=== PATIENT | female | born 1975 | race Caucasian/White ===

== ENCOUNTER 2016-11-13 11:22 | Inpatient (IN) | payer MEDICAID ==
[~2016-11-13] VITALS: Ht 162.6 cm; Wt 98.5 kg
[~2016-11-13 11:22] MED LIST: IBUP-40 PO
[2016-11-13] MEDS ORDERED: ONDANSETRON 4 MG INJ IV STA (12:53)
[2016-11-13] MEDS ORDERED: ACETAMINOPHEN 500 MG TAB PO STA (12:53)
[2016-11-13] MEDS ORDERED: KETOROLAC 30 MG INJ IV STA (12:53)
--- NOTE | 2016-11-13 12:53 | ERD ---
ER Documentation Chief Complaint Date/Time DATE: 11/13/16 TIME: 12:53 Chief Complaint Head and flank pain with pain with urination x 1 week HPI 41-year-old female presented emergency department for flank pain with dysuria for 1 week. She also added that she has headache for 2 days. Also reports a fever at home but never took her temperature. Stated that she took Tylenol by mouth at around 10 AM. Also added mild hematuria. Denies headache, loss of consciousness, dizziness, blurry vision, changes in vision, photophobia, facial pain, ear pain, throat pain, difficulty swallowing, neck pain, shoulder pain, chest pain, cough, hemoptysis, abdominal pain, loss of appetite, nausea, vomiting, hematochezia, diarrhea, constipation, , the possibility of being , bladder and bowel incontinences, extremity weakness, extremity tenderness, numbness or tingling sensation, difficulty walking, recent travel, recent exposure to illness, recent antibiotic use in the last 3 months, fever, chills. Allergy: Morphine. PMH: Denies. Family medical history: Denies. AO LMP: " of last week." Medications: [id number] Tylenol. Surgery: 2. Cholecystectomy. Hernia. Primary Social History: Not working at this time. Denies smoking, use of alcohol, use of illegal drugs. ROS All systems reviewed and are negative except as per history of present illness. Medications Home Meds Reported Medications Ibuprofen (Advil) 200 Mg Tablet, 400 MG PO Q6 02/23/11 Allergies Allergies: Coded Allergies: morphine (Verified Allergy, Intermediate, HEART PALPITATION, 11/13/16) PMhx/Soc History of Surgery: Yes (GALL BLADDER REMOVAL, 2012) Anesthesia Reaction: No Hx Neurological Disorder: No Hx Respiratory Disorders: No Hx Cardiac Disorders: No Hx Psychiatric Problems: No Hx Miscellaneous Medical Probl: No Hx Alcohol Use: No Hx Substance Use: No Hx Tobacco Use: No Physical Exam Vitals Vital Signs Date Time Temp Pulse Resp B/P Pulse Ox O2 Delivery O2 Flow Rate FiO2 11/13/16 16:08 94 22 136/62 99 Room Air 11/13/16 11:30 102.6 83 18 151/72 98 Physical Exam CONSTITUTIONAL: Well-appearing; well-nourished; in no apparent distress. HEAD: Normocephalic; atraumatic. EYES: Conjunctiva clear, sclera non-icteric, EOM intact. PERRL Ears: Hearing intact. EACs clear, TMs non-bulging, non-inflamed, translucent & mobile, ossicles normal appearance, No obstructions, no erythema, no discharges Nose: No obstructions. No polyps. No external lesions. Mucosa non-inflamed. No external lesions, septum and turbinates normal. No rhinorrhea. No discharges. Frontal sinus is non-tender to palpation. Maxillary sinus is non-tender to palpation. MOUTH: Moist mucous membranes, no lesion, no obstructions, no vesicles, no thrush, patent airway Throat: Uvula in midline. Right tonsil is +1 with no erythema, no exudate. Left tonsil is +1 with no erythema, no exudate. Tolerating secretions well. Good gag reflex. Patent airway. Neck: Supple, without lesions, bruits, or adenopathy. No mass. Thyroid non- enlarged and non-tender to palpation. CHEST: Symmetrical chest. Respirations even and not labored. No retractions noted. CARDIOVASCULAR: Normal S1, S2. RRR. No murmurs, gallops. RESPIRATORY: Normal chest excursion with respiration; breath sounds clear and equal bilaterally; no wheezes, rhonchi, or rales. Breathing even and unlabored. Speaking in clear, full, and complete sentences w/ ease. ABDOMEN: Normal bowel sounds normal. Soft, round, non-distended, non-guarding, no tenderness, no rebound, no organomegaly, no masses, no pulsating abdominal mass. No hernia. There is no right upper/right lower/epigastric/left upper/ left lower abdominal tenderness and light and deep palpation. No peritoneal signs. : Bilateral CVA tenderness. BACK: Symmetrical shoulder. Spine is midline without deformity, tenderness. No evidence of trauma or deformity. PELVIS: Stable pelvis. No evidence of trauma or deformity. MUSCULOSKELETAL: Normal gait and station. No misalignment, asymmetry, crepitation, defects, tenderness, masses, effusions, decreased range of motion, instability, atrophy or abnormal strength or tone in the head, neck, spine, ribs , pelvis or extremities. No calf tenderness. NEUROVASCULAR: Distal pulses are present. Pedal pulse are present, equal, and normal. Capillary refills are < 2 seconds. NEUROLOGIC: Alert and oriented x4. Speaks full and clear sentences. Grossly unremarkable. No neurologic deficits. Romberg test is negative. PSYCHOLOGICAL: The patients mood and manner are appropriate. No hallucinations , delusions. Not SI. Not HI. Has the capacity to decide for self SKIN: Normal for age and ethnicity; warm; dry; good turgor; no apparent lesions or exudates. No rashes, hives, discoloration. Intact. Result Diagram: 11/13/16 1315 11/13/16 1315 Results 24 hrs Laboratory Tests Test 11/13/16 13:15 11/13/16 14:45 White Blood Count 25.310^3/ul Red Blood Count 4.0710^6/ul Hemoglobin 12.3g/dl Hematocrit 36.1% Mean Corpuscular Volume 88.7fl Mean Corpuscular Hemoglobin 30.2pg Mean Corpuscular Hemoglobin Concent 34.1g/dl Red Cell Distribution Width 12.8% Platelet Count 25906^3/UL Mean Platelet Volume 10.7fl Neutrophils % 83.0% Lymphocytes % 7.9% Monocytes % 5.1% Eosinophils % 0.1% Basophils % 0.2% Nucleated Red Blood Cells % 0.0/100WBC Neutrophils # 21.010^3/ul Lymphocytes # 2.010^3/ul Monocytes # 1.310^3/ul Eosinophils # 0.010^3/ul Basophils # 0.110^3/ul Nucleated Red Blood Cells # 0.010^3/ul Prothrombin Time 13.4Sec Prothrombin Time Ratio 1.0 INR International Normalized Ratio 1.02 Activated Partial Thromboplast Time 33.6Sec Urine Color YELLOW Urine Clarity SLIGHTLY CLOUDY Urine pH 7.0 Urine Specific [place] 1.003 Urine Ketones NEGATIVEmg/dL Urine Nitrite NEGATIVEmg/dL Urine Bilirubin NEGATIVEmg/dL Urine Urobilinogen NEGATIVEmg/dL Urine Leukocyte Esterase 3+Eryn/ul Urine Microscopic RBC 2/HPF Urine Microscopic WBC 24/HPF Urine Bacteria MANY/HPF Urine Hemoglobin 2+mg/dL Urine Glucose NEGATIVEmg/dL Urine Total Protein NEGATIVEmg/dl Sodium Level 129mmol/L Potassium Level 3.4mmol/L Chloride Level 99mmol/L Carbon Dioxide Level 25mmol/L Anion Gap 8 Blood Urea Nitrogen 13mg/dl Creatinine 1.02mg/dl Glucose Level 128mg/dl Calcium Level 9.1mg/dl Total Bilirubin 0.5mg/dl Direct Bilirubin 0.00mg/dl Indirect Bilirubin 0.5mg/dl Aspartate Amino Transf (AST/SGOT) 25IU/L Alanine Aminotransferase (ALT/SGPT) 65IU/L Alkaline Phosphatase 96IU/L Total Protein 6.7g/dl Albumin 3.7g/dl Globulin 3.00g/dl Albumin/Globulin Ratio 1.23 Amylase Level 49U/L Lipase 132U/L Serum HCG, Qualitative NEGATIVE Lactic Acid Level 1.6mmol/L Current Medications Medications (Trade) Dose Ordered Sig/Bernabe Route PRN Reason Start Time Stop Time Status Last Admin Dose Admin Ketorolac Tromethamine (Toradol) 30 mg ONCE STAT IV 11/13/16 12:53 11/13/16 12:57 DC 11/13/16 13:18 Ondansetron HCl (Zofran Inj) 4 mg ONCE STAT IV 11/13/16 12:53 11/13/16 12:57 DC 11/13/16 13:18 Acetaminophen 1000 mg 1,000 mg ONCE STAT PO 11/13/16 12:53 11/13/16 12:57 DC 11/13/16 13:18 Ceftriaxone Sodium 50 ml @ 100 mls/hr ONCE ONCE IVPB 11/13/16 13:00 11/13/16 13:29 DC 11/13/16 13:18 Sodium Chloride 500 ml @ 500 mls/hr Q1H ONCE IV 11/13/16 13:00 11/13/16 13:59 DC 11/13/16 13:18 Sodium Chloride (NS) 2,960 ml @ 2,960 mls/hr BOLUS X1 ONCE IV 11/13/16 14:30 11/13/16 15:29 DC 11/13/16 14:45 Hydromorphone HCl (Dilaudid) 1 mg ONCE STAT IV 11/13/16 16:05 11/13/16 16:06 DC 11/13/16 16:14 Procedures/MDM Examination: Please see physical examination. Disease process, medical treatment was explained to the patient and family member. They verbalized understanding and agreed with the diagnostic tests, medical treatment, and follow-up care. Radiology: CT of the abdomen and pelvis without IV contrast Impression: Perinephric stranding about both kidneys with medullary nephrocalcinosis with a mildly prominent appearance to the collecting system on the right without evidence of ureteral lithiasis. He recently passed calculus could have this appearance. Hepatosplenomegaly with a diffuse decrease in hepatic attenuation suggesting steatosis. Previous cholecystectomy with mild dilation of the common bile duct of uncertain significance. Normal-appearing appendix is visualized. Blood work: Elevated white count at 25.3; hyponatremia at 129 mmol/L; potassium of 3.4 mmol/L Lactic acid of 1.6 mmol/L POC urine : Negative. Urinalysis: Reviewed. Treatment: IV insertion. Normal saline at 31 cc/kg IV. Ceftriaxone 1 g IV. Re-evaluation: Denies headache, dizziness, blurry vision, neck pain, shoulder pain, chest pain, back pain, abdominal pain, nausea, vomiting. No episode of emesis in the emergency department. Alert and oriented 4. Speaks full and clear sentences. Respirations even and unlabored. Lung sounds clear to auscultation. Active bowel sounds. There is no right upper/right lower/ epigastric/left upper/left lower abdominal tenderness and light and deep palpation. Negative on Rovsings sign. Negative Trupti sign. Has left-sided CVA tenderness on palpation. Ambulatory with steady gait. No neurovascular deficits. No neurological deficits. Consultation: None. Differential diagnosis: Abdominal aortic aneurysm versus nephrolithiasis versus pancreatitis versus pyelonephritis versus urinary tract infection Medical decision makin-year-old female presented emergency department for flank pain with dysuria for 1 week. She also added that she has headache for 2 days. Also reports a fever at home but never took her temperature. Stated that she took Tylenol by mouth at around 10 AM. Patient's complaint, patient's history about her complaint, my physical findings, diagnostic test results, my reevaluation are consistent with my final diagnosis of pyelonephritis, leukocytosis, hyponatremia. Case was discussed with supervising emergency room physician, Dr. Kim Castellanos who agreed with my medical decision making. She also agreed to continue the care and process the admission. Departure Diagnosis: Primary Impression: Pyelonephritis Additional Impressions: Fever Leukocytosis Hyponatremia NICCI LUQUE Nov 13, 2016 12:53 deficits, difficulty of breathing. Breathing even and unlabored. Lung sounds are clear to auscultation. Not in distress. Appears comfortable. Ambulatory with steady gait. Appears satisfied with care provided here in ED. NICCI LUQUE Nov 13, 2016 12:53
[2016-11-13] MEDS ORDERED: SOD CHLORIDE 0.9% 500 ML IV ONE (13:00)
[2016-11-13] MEDS ORDERED: CEFTRIAXONE 1 GM/50 ML (PMX) 50 ML IVPB ONE (13:00)
[2016-11-13 13:40] LABS: ADD SCAN DIFF NO
[2016-11-13 13:44] LABS: ABNORMAL IP MESSAGE 1; BASOPHIL # 0.1 10^3/ul (0.0-0.1); BASOPHILS % 0.2 % (0.0-2.0); EOSINOPHILS % 0.1 % (0.0-7.0); HEMATOCRIT 36.1 % (37.0-47.0); HEMOGLOBIN 12.3 g/dl (12.0-16.0); LYMPHOCYTES % 7.9 % (15.0-51.0); MEAN CORPUSCULAR HEMOGLOBIN 30.2 pg (29.0-33.0); MEAN CORPUSCULAR HGB CONC 34.1 g/dl (32.0-37.0); MEAN CORPUSCULAR VOLUME 88.7 fl (82.0-101.0); MEAN PLATELET VOLUME 10.7 fl (7.4-10.4); MONOCYTE # 1.3 10^3/ul (0.3-0.9); MONOCYTES % 5.1 % (0.0-11.0); PLATELET COUNT 423 10^3/UL (140-415); RED BLOOD COUNT 4.07 10^6/ul (4.20-5.40); RED CELL DISTRIBUTION WIDTH 12.8 % (11.5-14.5); WHITE BLOOD COUNT 25.3 10^3/ul (4.8-10.8)
[2016-11-13 13:52] LABS: ADD UMIC YES; UR ASCORBIC ACID NEGATIVE (NEGATIVE); UR BACTERIA MANY /HPF (NONE SEEN); UR BILIRUBIN (Dip) NEGATIVE (NEGATIVE); UR BLOOD (Dip) 2+ mg/dL (NEGATIVE); UR CLARITY SLIGHTLY CLOUDY (CLEAR); UR COLOR YELLOW (YELLOW); UR GLUCOSE (Dip) NEGATIVE (NEGATIVE); UR KETONES (Dip) NEGATIVE (NEGATIVE); UR LEUKOCYTE ESTERASE (Dip) 3+ Leu/ul (NEGATIVE); UR NITRITE (Dip) NEGATIVE (NEGATIVE); UR RBC 2 /HPF (0-5); UR SPECIFIC GRAVITY (Dip) 1.003 (1.003-1.030); UR TOTAL PROTEIN (Dip) NEGATIVE (NEGATIVE); UR UROBILINOGEN (Dip) NEGATIVE (NEGATIVE)
[2016-11-13 13:57] LABS: INR 1.02; PROTIME 13.4 Sec (12.2-14.2)
[2016-11-13 13:58] LABS: PARTIAL THROMBOPLASTIN TIME 33.6 Sec (25.0-35.0)
[2016-11-13 14:14] LABS: ALBUMIN 3.7 g/dl (3.3-4.9); ALBUMIN/GLOBULIN RATIO 1.23; BILIRUBIN,INDIRECT 0.5 mg/dl (0-1.1); BILIRUBIN,TOTAL 0.5 mg/dl (0.2-1.3); CREATININE 1.02 mg/dl (0.44-1.00); POTASSIUM 3.4 mmol/L (3.5-5.1); TOTAL PROTEIN 6.7 g/dl (6.1-8.1)
[2016-11-13] MEDS ORDERED: SOD CHLORIDE 0.9% IV ONE (14:30)
[2016-11-13 14:31] LABS: CALCIUM 9.1 mg/dl (8.4-10.2)
--- NOTE | 2016-11-13 15:01 | RADRPT ---
PROCEDURE: CT Abdomen and Pelvis without contrast. CLINICAL INDICATION: Flank pain, dysuria, hematuria. TECHNIQUE: CT scan of the abdomen and pelvis without contrast was performed on a multidetector hig h-resolution CT scanner. The patient was scanned without intravenous contrast. Coronal and sagittal reformatted images were obtained from the axial source images. Images were reviewed on a high-resol [employer] PACS workstation. The total exam CTDI equals 19.11 mGy and the total exam DLP equals 1052.1 mG y-cm. One or the following dose reduction techniques were used: -Automated exposure control. -Adjustment of the mA and/or KV according to patient's size. -Use of iterative reconstruction technique. COMPARISON: CT abdomen pelvis from 03/05/2015. FINDINGS: Lung Bases: Unremarkable. GI:. Unremarkable. Liver: There is hepatomegaly 23.5 cm in length. The overall densities decrease consistent with diffu se steatosis. Gallbladder: Gallbladder is surgically absent. The common bile duct measures 11 mm. Pancreas: Unremarkable. Spleen: There is splenomegaly at 14 cm in length. Adrenals: Unremarkable. Kidneys: There is bilateral perinephric stranding. There are calcifications in the renal pyramids b ilaterally consistent with medullary nephrocalcinosis. There is a mildly prominent appearance to th e right ureter. However, no ureteral lithiasis is seend. Bladder: The bladder is decompressed and therefore not well evaluated. Pelvic Organs: Unremarkable. Skeleton: Normal for age. Other: There is postoperative change in the region of the umbilicus. IMPRESSION: 1. Perinephric stranding about both kidneys with medullary nephrocalcinosis with a mildly prominent appearance to the collecting system on the right without evidence of ureteral lithiasis. A recently passed calculus could have this appearance. 2. Hepatosplenomegaly with a diffuse decrease in hepatic attenuation suggesting steatosis. 3. Previous cholecystectomy with mild dilation of the common bile duct of uncertain significance. 4. Normal appearing appendix visualized. RPTAT: [facility] Physician Aundrea Date Time Electronically viewed and signed by Physician Aundrea on 11/13/2016 15:00 TRACE/
[2016-11-13] MEDS ORDERED: HYDROmorphONE 1 MG/ML SYG IV STA (16:05)
[2016-11-13] MEDS ORDERED: ACETAMINOPHEN 325 MG TAB PO PRN (18:00)
[2016-11-13] MEDS ORDERED: ONDANSETRON 4 MG INJ IV PRN ×2 (18:00→18:30)
--- NOTE | 2016-11-13 18:14 | HP ---
Date/Time of Note Date/Time of Note DATE: 11/13/16 TIME: 18:09 Assessment/Plan VTE Prophylaxis VTE Prophylaxis Intervention: SCD's Assessment/Plan Assessment/Plan 41 yo F here with sepsis (fever +leukocytosis) suspect 2/2 pyelo given UA findings of pyruria and bactiuria PLAN empiric ceftriaxone pending further culture data pain management regular diet DVT prophx HPI/ROS Admit Date/Time Admit Date/Time Hx of Present Illness 41 yo F presents with 1 day of feeling unwell-->nausea, chills. No fever. No vomiting. +malaise. No back pain PMH/Family/Social Past Medical History no chronic medical conditions, no home meds Social History Smoking Status: Never smoker Exam/Review of Systems Vital Signs Vitals Vital Signs Date Time Temp Pulse Resp B/P Pulse Ox O2 Delivery O2 Flow Rate FiO2 11/13/16 16:08 94 22 136/62 99 Room Air 11/13/16 11:30 102.6 Exam Exam nad EOMI MMM rrr no mrg lungs clear abd soft no CVA tenderness no rashes no edema WBCs noted Cr ok Na mildly low Labs Result Diagram: 11/13/16 1315 11/13/16 1315 ANGELO KELLOGG MD Nov 13, 2016 18:14
[2016-11-13] MEDS ORDERED: POTASSIUM CHLORIDE (SR) 20 MEQ TAB PO STA (18:16)
[2016-11-13] MEDS ORDERED: HYDROCODONE/APAP (5/325) TAB PO PRN (18:30)
[2016-11-13] MEDS ORDERED: MAGNESIUM HYDROXIDE 30ML CUP PO PRN (18:30)
[2016-11-13] MEDS ORDERED: BISACODYL (EC) 5 MG TAB PO PRN (18:30)
[2016-11-13] MEDS ORDERED: ONDANSETRON 4 MG TAB PO PRN (18:30)
[2016-11-13] MEDS ORDERED: NACL 0.9% 3 ML SYG IV SCH (18:30)
[2016-11-13] MEDS ORDERED: morphine 2 MG INJ IV PRN (18:30)
[2016-11-13] MEDS ORDERED: DOCUSATE SODIUM 100 MG CAP PO PRN (18:30)
[2016-11-13] MEDS ORDERED: METOCLOPRAMIDE 10 MG INJ IV PRN (18:30)
[2016-11-13] MEDS: SOD CHLORIDE 0.9% 1,000 ML IV SCH ×2 (18:59→20:00)
[2016-11-13] MEDS: ACETAMINOPHEN 325 MG TAB PO PRN (19:27)
[2016-11-13 20:12] VITALS: BP 110/61; RESP 17
[2016-11-14] MEDS: ACETAMINOPHEN 325 MG TAB PO PRN ×3 (01:07→18:30)
[2016-11-14] MEDS: SOD CHLORIDE 0.9% 1,000 ML IV SCH ×3 (02:09→18:31)
[2016-11-14 05:50] LABS: ADD SCAN DIFF NO
[2016-11-14 05:56] LABS: ABNORMAL IP MESSAGE 1; BASOPHILS % 0.2 % (0.0-2.0); EOSINOPHILS # 0.1 10^3/ul (0.0-0.5); EOSINOPHILS % 0.2 % (0.0-7.0); HEMATOCRIT 29.3 % (37.0-47.0); HEMOGLOBIN 9.9 g/dl (12.0-16.0); LYMPHOCYTES # 1.5 10^3/ul (0.8-2.9); LYMPHOCYTES % 5.6 % (15.0-51.0); MEAN CORPUSCULAR HEMOGLOBIN 30.4 pg (29.0-33.0); MEAN CORPUSCULAR HGB CONC 33.8 g/dl (32.0-37.0); MEAN CORPUSCULAR VOLUME 89.9 fl (82.0-101.0); MEAN PLATELET VOLUME 10.5 fl (7.4-10.4); MONOCYTES % 3.8 % (0.0-11.0); NEUTROPHIL # 22.9 10^3/ul (1.6-7.5); NEUTROPHILS % 87.9 % (39.0-77.0); PLATELET COUNT 376 10^3/UL (140-415); RED BLOOD COUNT 3.26 10^6/ul (4.20-5.40); RED CELL DISTRIBUTION WIDTH 13.2 % (11.5-14.5)
[2016-11-14 06:17] VITALS: Ht 162.6 cm; Wt 98.5 kg
[2016-11-14 06:56] LABS: CALCIUM 7.9 mg/dl (8.4-10.2); POTASSIUM 3.4 mmol/L (3.5-5.1)
[2016-11-14 07:00] VITALS: BP 109/54; RESP 18
[2016-11-14] MEDS ORDERED: POTASSIUM CHLORIDE (SR) 20 MEQ TAB PO STA (08:18)
[2016-11-14] MEDS: ENOXAPARIN 40 MG/0.4 ML SYG SC SCH (09:25)
[2016-11-14] MEDS ORDERED: HYDROmorphONE 1 MG/ML SYG IV PRN (09:30)
[2016-11-14] MEDS ORDERED: CEFTRIAXONE 1 GM/50 ML (PMX) 50 ML IVPB SCH (12:40)
--- NOTE | 2016-11-14 12:40 | PN ---
Date/Time of Note Date/Time of Note DATE: 11/14/16 TIME: 12:39 Assessment/Plan VTE Prophylaxis VTE Prophylaxis Intervention: SCD's Lines/Catheters IV Catheter Type (from Nrsg): Peripheral IV Urinary Cath still in place: No Assessment/Plan Assessment/Plan 41 yo F here with sepsis (fever +leukocytosis) suspect 2/2 pyelo given UA findings of pyruria and bactiuria PLAN empiric ceftriaxone pending further culture data-->dw pt pain management regular diet DVT prophx Subjective 24 Hr Interval Summary Free Text/Dictation Feeling much better. Family member served as town clerk Exam/Review of Systems Vital Signs Vitals Vital Signs Date Time Temp Pulse Resp B/P Pulse Ox O2 Delivery O2 Flow Rate FiO2 11/14/16 07:00 100.0 100 18 109/54 98 11/13/16 16:08 Room Air Intake and Output 11/13/16 11/13/16 11/14/16 15:00 23:00 07:00 Intake Total 2320 ml Output Total 1600 ml Balance 720 ml Exam nad no mrg lungs clear abd soft no CVA tenderness nl no rashes Results Result Diagram: 11/14/16 0500 11/14/16 0500 Results 24 hrs Laboratory Tests Test 11/13/16 13:15 11/13/16 14:45 11/14/16 05:00 White Blood Count 25.3 #H 26.0 H Red Blood Count 4.07 L 3.26 L Hemoglobin 12.3 9.9 L Hematocrit 36.1 L 29.3 L Mean Corpuscular Volume 88.7 89.9 Mean Corpuscular Hemoglobin 30.2 30.4 Mean Corpuscular Hemoglobin Concent 34.1 33.8 Red Cell Distribution Width 12.8 13.2 Platelet Count 423 H 376 Mean Platelet Volume 10.7 #H 10.5 H Neutrophils % 83.0 H 87.9 H Lymphocytes % 7.9 L 5.6 L Monocytes % 5.1 3.8 Eosinophils % 0.1 0.2 Basophils % 0.2 0.2 Nucleated Red Blood Cells % 0.0 0.0 Neutrophils # 21.0 H 22.9 H Lymphocytes # 2.0 1.5 Monocytes # 1.3 H 1.0 H Eosinophils # 0.0 0.1 Basophils # 0.1 0.0 Nucleated Red Blood Cells # 0.0 0.0 Prothrombin Time 13.4 Prothrombin Time Ratio 1.0 INR International Normalized Ratio 1.02 Activated Partial Thromboplast Time 33.6 Urine Color YELLOW Urine Clarity SLIGHTLY CLOUDY A Urine pH 7.0 Urine Specific [place] 1.003 Urine Ketones NEGATIVE Urine Nitrite NEGATIVE Urine Bilirubin NEGATIVE Urine Urobilinogen NEGATIVE Urine Leukocyte Esterase 3+ H Urine Microscopic RBC 2 Urine Microscopic WBC 24 H Urine Bacteria MANY A Urine Hemoglobin 2+ H Urine Glucose NEGATIVE Urine Total Protein NEGATIVE Sodium Level 129 L 141 Potassium Level 3.4 L 3.4 L Chloride Level 99 108 Carbon Dioxide Level 25 22 Anion Gap 8 14 Blood Urea Nitrogen 13 9 Creatinine 1.02 H 1.00 Glucose Level 128 169 Calcium Level 9.1 7.9 L Total Bilirubin 0.5 Direct Bilirubin 0.00 Indirect Bilirubin 0.5 Aspartate Amino Transf (AST/SGOT) 25 Alanine Aminotransferase (ALT/SGPT) 65 Alkaline Phosphatase 96 Total Protein 6.7 Albumin 3.7 Globulin 3.00 Albumin/Globulin Ratio 1.23 Amylase Level 49 Lipase 132 Serum HCG, Qualitative NEGATIVE Lactic Acid Level 1.6 Medications Medications Current Medications Sodium Chloride (NS) 1,000 ml @ 125 mls/hr Q8H IV Last administered on 06:11; Admin Dose 125 MLS/HR; Start 11/13/16 at 18:09 Ondansetron HCl (Zofran Tab) 4 mg Q6H PRN PO NAUSEA AND/OR VOMITING; Start at 18:30 Ondansetron HCl (Zofran Inj) 4 mg Q6H PRN IV NAUSEA AND/OR VOMITING; Start at 18:30 Metoclopramide HCl (Reglan) 10 mg Q6H PRN IV NAUSEA AND/OR VOMITING; Start at 18:30 Acetaminophen (Tylenol Tab) 650 mg Q6H PRN PO PAIN LEVEL 1-3 OR FEVER Last administered on 11/14/16 10:24; Admin Dose 650 MG; Start 11/13/16 at 18:30 Acetaminophen/ Hydrocodone Bitart ([place] (5/325)) 1 tab Q6H PRN PO MODERATE PAIN LEVEL 4-6; Start 11/13/16 at 18:30 Docusate Sodium (Colace) 100 mg Q12H PRN PO CONSTIPATION; Start 11/13/16 at 18: 30 Magnesium Hydroxide (Milk Of Mag) 30 ml DAILY PRN PO CONSTIPATION; Start at 18:30 Bisacodyl (Dulcolax) 5 mg DAILY PRN PO CONSTIPATION; Start 11/13/16 at 18:30 Enoxaparin Sodium (Lovenox) 40 mg DAILY SC Last administered on 11/14/16t 09:25 ; Admin Dose 40 MG; Start 11/14/16 at 09:00 Hydromorphone HCl (Dilaudid) 0.5 mg Q3H PRN IV PAIN; Start 11/14/16 at 09:30 ANGELO KELLOGG MD Nov 14, 2016 12:40
[2016-11-14 17:00] VITALS: BP 111/59
[2016-11-14] MEDS: LEVOFLOXACIN 750 MG TABLET PO SCH (18:30)
[2016-11-14 21:38] VITALS: BP 114/66; RESP 20
[2016-11-15 00:03] VITALS: BP 115/61; PULSE 64; RESP 18
[2016-11-15] MEDS: SOD CHLORIDE 0.9% 1,000 ML IV SCH ×3 (02:10→18:41)
[2016-11-15] MEDS: LEVOFLOXACIN 750 MG TABLET PO SCH (05:48)
[2016-11-15] MEDS: ENOXAPARIN 40 MG/0.4 ML SYG SC SCH (07:58)
[2016-11-15 08:15] VITALS: BP 112/60; RESP 18
--- NOTE | 2016-11-15 10:28 | PN ---
Date/Time of Note Date/Time of Note DATE: 11/15/16 TIME: 10:27 Assessment/Plan VTE Prophylaxis VTE Prophylaxis Intervention: SCD's Lines/Catheters IV Catheter Type (from Nrsg): Peripheral IV Urinary Cath still in place: No Assessment/Plan Assessment/Plan 41 yo F here with sepsis (fever +leukocytosis) suspect 2/2 pyelo given UA findings of pyruria and bactiuria with resultant bacteremia 2/2 ESBL EColi PLAN given ESBL microbe with no readily apparent PO options, ID consult for abx assistance/possible HH IVs pain management regular diet DVT prophx Subjective 24 Hr Interval Summary Free Text/Dictation Urine culture results reviewed. Unfortunately ESBL R to quinolones Pt states she is feeling better Exam/Review of Systems Vital Signs Vitals Vital Signs Date Time Temp Pulse Resp B/P Pulse Ox O2 Delivery O2 Flow Rate FiO2 11/15/16 08:15 98.9 91 18 112/60 97 11/15/16 00:03 Room Air Intake and Output 11/14/16 11/14/16 11/15/16 15:00 23:00 07:00 Intake Total 900 ml 1855 ml Output Total 1100 ml 1800 ml Balance -200 ml 55 ml Exam seen walking in hallway nad lungs clear abd soft no rashes micro results reviewed Results Result Diagram: 11/14/16 0500 11/14/16 0500 Medications Medications Current Medications Sodium Chloride (NS) 1,000 ml @ 125 mls/hr Q8H IV Last administered on 02:10; Admin Dose 125 MLS/HR; Start 11/13/16 at 18:09 Ondansetron HCl (Zofran Tab) 4 mg Q6H PRN PO NAUSEA AND/OR VOMITING; Start at 18:30 Ondansetron HCl (Zofran Inj) 4 mg Q6H PRN IV NAUSEA AND/OR VOMITING; Start at 18:30 Metoclopramide HCl (Reglan) 10 mg Q6H PRN IV NAUSEA AND/OR VOMITING; Start at 18:30 Acetaminophen (Tylenol Tab) 650 mg Q6H PRN PO PAIN LEVEL 1-3 OR FEVER Last administered on 11/14/16 18:30; Admin Dose 650 MG; Start 11/13/16 at 18:30 Acetaminophen/ Hydrocodone Bitart ([place] (5/325)) 1 tab Q6H PRN PO MODERATE PAIN LEVEL 4-6; Start 11/13/16 at 18:30 Docusate Sodium (Colace) 100 mg Q12H PRN PO CONSTIPATION; Start 11/13/16 at 18: 30 Magnesium Hydroxide (Milk Of Mag) 30 ml DAILY PRN PO CONSTIPATION; Start at 18:30 Bisacodyl (Dulcolax) 5 mg DAILY PRN PO CONSTIPATION; Start 11/13/16 at 18:30 Enoxaparin Sodium (Lovenox) 40 mg DAILY SC Last administered on 11/15/16t 07:58 ; Admin Dose 40 MG; Start 11/14/16 at 09:00 Hydromorphone HCl (Dilaudid) 0.5 mg Q3H PRN IV PAIN; Start 11/14/16 at 09:30 ANGELO KELLOGG MD Nov 15, 2016 10:28
[2016-11-15] MEDS ORDERED: MEROPENEM 2 GM in SOD CHLORIDE 0.9% 100 ML IVPB SCH (14:00)
[2016-11-15] MEDS ORDERED: MEROPENEM 1 GM/50ML(PMX) 50 ML IVPB SCH (14:00)
--- NOTE | 2016-11-15 17:01 | CONS ---
Date/Time of Note Date/Time of Note DATE: 11/15/16 TIME: 17:00 Consultation Date/Type/Reason Admit Date/Time Type of Consultation: ID Social History Smoking Status: Never smoker Exam/Review of Systems Vital Signs Vitals Vital Signs Date Time Temp Pulse Resp B/P Pulse Ox O2 Delivery O2 Flow Rate FiO2 11/15/16 08:15 98.9 91 18 112/60 97 11/15/16 00:03 Room Air Intake and Output 11/14/16 11/14/16 11/15/16 15:00 23:00 07:00 Intake Total 900 ml 1855 ml Output Total 1100 ml 1800 ml Balance -200 ml 55 ml Results Result Diagram: 11/14/16 0500 11/14/16 0500 Medications Medications Current Medications Sodium Chloride (NS) 1,000 ml @ 125 mls/hr Q8H IV Last administered on 12:59; Admin Dose 125 MLS/HR; Start 11/13/16 at 18:09 Ondansetron HCl (Zofran Tab) 4 mg Q6H PRN PO NAUSEA AND/OR VOMITING; Start at 18:30 Ondansetron HCl (Zofran Inj) 4 mg Q6H PRN IV NAUSEA AND/OR VOMITING; Start at 18:30 Metoclopramide HCl (Reglan) 10 mg Q6H PRN IV NAUSEA AND/OR VOMITING; Start at 18:30 Acetaminophen (Tylenol Tab) 650 mg Q6H PRN PO PAIN LEVEL 1-3 OR FEVER Last administered on 11/14/16 18:30; Admin Dose 650 MG; Start 11/13/16 at 18:30 Acetaminophen/ Hydrocodone Bitart ([place] (5/325)) 1 tab Q6H PRN PO MODERATE PAIN LEVEL 4-6; Start 11/13/16 at 18:30 Docusate Sodium (Colace) 100 mg Q12H PRN PO CONSTIPATION; Start 11/13/16 at 18: 30 Magnesium Hydroxide (Milk Of Mag) 30 ml DAILY PRN PO CONSTIPATION; Start at 18:30 Bisacodyl (Dulcolax) 5 mg DAILY PRN PO CONSTIPATION; Start 11/13/16 at 18:30 Enoxaparin Sodium (Lovenox) 40 mg DAILY SC Last administered on 11/15/16 07:58 ; Admin Dose 40 MG; Start 11/14/16 at 09:00 Hydromorphone HCl 0.5 mg 0.5 mg Q3H PRN IV PAIN; Start 11/14/16 at 09:30 Meropenem/Sodium Chloride ([place] 1 Gm/50 ml (Pmx)) 50 ml @ 100 mls/hr Q8 IVPB Last administered on 11/15/16 13:04; Admin Dose 100 MLS/HR; Start 11/15/16 at 14:00 JUDY JOYNER MD Nov 15, 2016 17:01
[2016-11-15] MEDS ORDERED: LIDOCAINE 1% (MPF) 5 ML VIAL SC ONE (17:30)
[2016-11-15] MEDS: ERTAPENEM SODIUM 1 GM in SOD CHLORIDE 0.9% 100 ML IVPB SCH (18:43)
[2016-11-15 19:29] VITALS: BP 118/69; RESP 16
[2016-11-15 19:41] VITALS: BP 150/70; RESP 16
[2016-11-16] MEDS: ACETAMINOPHEN 325 MG TAB PO PRN (01:02)
[2016-11-16 08:04] VITALS: BP 117/70; RESP 18
[2016-11-16] MEDS: ENOXAPARIN 40 MG/0.4 ML SYG SC SCH (08:46)
--- NOTE | 2016-11-16 14:06 | PN ---
Date/Time of Note Date/Time of Note DATE: 11/16/16 TIME: 13:59 Assessment/Plan VTE Prophylaxis VTE Prophylaxis Intervention: LMWH Lines/Catheters IV Catheter Type (from Nrs): Saline Lock Urinary Cath still in place: No Assessment/Plan Chief Complaint/Hosp Course Assessment/Plan: 41 yo F here with sepsis (fever +leukocytosis) suspect 2/2 pyelo given UA findings of pyruria and bactiuria with resultant bacteremia 2/2 ESBL EColi #1. Pyelonephritis - given ESBL microbe with no readily apparent PO options, follow-up infectious disease recommendations. Per discussion with them will repeat blood cultures as well today, then depending on the results may or may not order for PICC line placement -Continue current IV antibiotics 2. pain management-stable, continue current meds 3. GI - regular diet 4. ppx- DVT-low molecular weight heparin Problems: Subjective 24 Hr Interval Summary Free Text/Dictation Patient had no acute events overnight. Awaiting possible PICC line placement Exam/Review of Systems Vital Signs Vitals Vital Signs Date Time Temp Pulse Resp B/P Pulse Ox O2 Delivery O2 Flow Rate FiO2 11/16/16 08:04 98.1 83 18 117/70 98 11/15/16 00:03 Room Air Intake and Output 11/15/16 11/15/16 11/16/16 15:00 23:00 07:00 Intake Total 50 ml 2275 ml 1700 ml Output Total 1500 ml 1100 ml Balance 50 ml 775 ml 600 ml Exam Lying in bed, no acute distress Pupils equal round reactive to light extraocular muscles are intact lungs clear abd soft no rashes Results Result Diagram: 11/14/16 0500 11/14/16 0500 Medications Medications Current Medications Ondansetron HCl (Zofran Tab) 4 mg Q6H PRN PO NAUSEA AND/OR VOMITING; Start at 18:30 Ondansetron HCl (Zofran Inj) 4 mg Q6H PRN IV NAUSEA AND/OR VOMITING; Start at 18:30 Metoclopramide HCl (Reglan) 10 mg Q6H PRN IV NAUSEA AND/OR VOMITING; Start at 18:30 Acetaminophen (Tylenol Tab) 650 mg Q6H PRN PO PAIN LEVEL 1-3 OR FEVER Last administered on 11/16/16t 01:02; Admin Dose 650 MG; Start 11/13/16 at 18:30 Acetaminophen/ Hydrocodone Bitart ([place] (5/325)) 1 tab Q6H PRN PO MODERATE PAIN LEVEL 4-6; Start 11/13/16 at 18:30 Docusate Sodium (Colace) 100 mg Q12H PRN PO CONSTIPATION; Start 11/13/16 at 18: 30 Magnesium Hydroxide (Milk Of Mag) 30 ml DAILY PRN PO CONSTIPATION; Start at 18:30 Bisacodyl (Dulcolax) 5 mg DAILY PRN PO CONSTIPATION; Start 11/13/16 at 18:30 Enoxaparin Sodium (Lovenox) 40 mg DAILY SC Last administered on 11/15/16t 07:58 ; Admin Dose 40 MG; Start 11/14/16 at 09:00 Hydromorphone HCl 0.5 mg 0.5 mg Q3H PRN IV PAIN; Start 11/14/16 at 09:30 Ertapenem 1 gm/ Sodium Chloride 100 ml @ 200 mls/hr Q24H IVPB Last administered on 11/15/16t 18:43; Admin Dose 200 MLS/HR; Start 11/15/16 at 18:30 Potassium Chloride (KCl 40 MEQ/250 ML NS) 250 ml @ 62.5 mls/hr ONCE ONCE IVPB ; Start 11/16/16 at 14:00; Stop 11/16/16 at 17:59; Status TAYO ALARCON Nov 16, 2016 14:06
--- NOTE | 2016-11-16 15:57 | CONS ---
Date/Time of Note Date/Time of Note DATE: 11/16/16 TIME: 15:57 Assessment/Plan Assessment/Plan Chief Complaint/Hosp Course Alert, feels better, denies dysuria, no nausea vomiting no diarrhea, less lower back pain Temperature 98.1 pulse 83 respirations 18 blood pressure 117/70 saturation 98 room air Antimicrobials: Invanz Microbiology: Blood and urine culture growing E. coli ESBL Physical examination: Obese well-developed middle-aged woman who is alert in no distress. Head atraumatic normocephalic, sclera nonicteric vehicle mucosa pink. Neck is supple. Chest rise symmetrical, breath sounds clear. Abdomen soft, no pain on palpation bowel tones present extremities no cyanosis Assessment: 1. Sepsis with E. coli ESBL bacteremia secondary to #2 2. E. coli ESBL pyelonephritis Plan: We are going to repeat blood cultures and labs in a.m., anticipate discharge on IV Invanz for 2 weeks once medically cleared Problems: Consultation Date/Type/Reason Admit Date/Time Nov 13, 2016 at 17:41 Initial Consult Date Type of Consultation: ID Exam/Review of Systems Vital Signs Vitals Vital Signs Date Time Temp Pulse Resp B/P Pulse Ox O2 Delivery O2 Flow Rate FiO2 11/16/16 08:04 98.1 83 18 117/70 98 11/15/16 00:03 Room Air Intake and Output 11/15/16 11/15/16 11/16/16 15:00 23:00 07:00 Intake Total 50 ml 2275 ml 1700 ml Output Total 1500 ml 1100 ml Balance 50 ml 775 ml 600 ml Results Result Diagram: 11/14/16 0500 11/14/16 0500 Medications Medications Current Medications Ondansetron HCl (Zofran Tab) 4 mg Q6H PRN PO NAUSEA AND/OR VOMITING; Start at 18:30 Ondansetron HCl (Zofran Inj) 4 mg Q6H PRN IV NAUSEA AND/OR VOMITING; Start at 18:30 Metoclopramide HCl (Reglan) 10 mg Q6H PRN IV NAUSEA AND/OR VOMITING; Start at 18:30 Acetaminophen (Tylenol Tab) 650 mg Q6H PRN PO PAIN LEVEL 1-3 OR FEVER Last administered on 11/16/16t 01:02; Admin Dose 650 MG; Start 11/13/16 at 18:30 Acetaminophen/ Hydrocodone Bitart ([place] (5/325)) 1 tab Q6H PRN PO MODERATE PAIN LEVEL 4-6; Start 11/13/16 at 18:30 Docusate Sodium (Colace) 100 mg Q12H PRN PO CONSTIPATION; Start 11/13/16 at 18: 30 Magnesium Hydroxide (Milk Of Mag) 30 ml DAILY PRN PO CONSTIPATION; Start at 18:30 Bisacodyl (Dulcolax) 5 mg DAILY PRN PO CONSTIPATION; Start 11/13/16 at 18:30 Enoxaparin Sodium (Lovenox) 40 mg DAILY SC Last administered on 11/15/16 07:58 ; Admin Dose 40 MG; Start 11/14/16 at 09:00 Hydromorphone HCl 0.5 mg 0.5 mg Q3H PRN IV PAIN; Start 11/14/16 at 09:30 Ertapenem 1 gm/ Sodium Chloride 100 ml @ 200 mls/hr Q24H IVPB Last administered on 11/15/16 18:43; Admin Dose 200 MLS/HR; Start 11/15/16 at 18:30 Potassium Chloride (KCl 40 MEQ/250 ML NS) 250 ml @ 62.5 mls/hr ONCE ONCE IVPB ; Start 11/16/16 at 16:00; Stop 11/16/16 at 19:59 JANIA CHAUHAN NP Nov 16, 2016 15:57
[2016-11-16] MEDS ORDERED: POTASSIUM CHLORIDE 250 ML IVPB ONE (16:00)
[2016-11-16] MEDS: ERTAPENEM SODIUM 1 GM in SOD CHLORIDE 0.9% 100 ML IVPB SCH (16:43)
[2016-11-16 19:44] VITALS: BP 116/60; RESP 18
[2016-11-17 04:50] LABS: ADD SCAN DIFF NO
[2016-11-17 04:54] LABS: BASOPHILS % 0.3 % (0.0-2.0); EOSINOPHILS # 0.2 10^3/ul (0.0-0.5); EOSINOPHILS % 1.4 % (0.0-7.0); HEMATOCRIT 33.4 % (37.0-47.0); LYMPHOCYTES # 2.5 10^3/ul (0.8-2.9); LYMPHOCYTES % 16.1 % (15.0-51.0); MEAN CORPUSCULAR HEMOGLOBIN 30.1 pg (29.0-33.0); MEAN CORPUSCULAR HGB CONC 32.9 g/dl (32.0-37.0); MEAN CORPUSCULAR VOLUME 91.5 fl (82.0-101.0); MEAN PLATELET VOLUME 9.8 fl (7.4-10.4); MONOCYTE # 0.8 10^3/ul (0.3-0.9); MONOCYTES % 4.9 % (0.0-11.0); NEUTROPHIL # 11.8 10^3/ul (1.6-7.5); NEUTROPHILS % 74.9 % (39.0-77.0); PLATELET COUNT 548 10^3/UL (140-415); RED BLOOD COUNT 3.65 10^6/ul (4.20-5.40); RED CELL DISTRIBUTION WIDTH 13.1 % (11.5-14.5); WHITE BLOOD COUNT 15.7 10^3/ul (4.8-10.8)
[2016-11-17 05:22] LABS: CREATININE 0.86 mg/dl (0.44-1.00); POTASSIUM 4.9 mmol/L (3.5-5.1)
[2016-11-17 07:45] VITALS: BP 140/67; RESP 18
[2016-11-17] MEDS: ENOXAPARIN 40 MG/0.4 ML SYG SC SCH (08:40)
--- NOTE | 2016-11-17 12:04 | PN ---
Date/Time of Note Date/Time of Note DATE: 11/17/16 TIME: 12:02 Assessment/Plan VTE Prophylaxis VTE Prophylaxis Intervention: LMWH Lines/Catheters IV [facility] Saline Lock Urinary Cath still in place: No Assessment/Plan Chief Complaint/Hosp Course Assessment/Plan: 41 yo F here with sepsis (fever +leukocytosis) suspect 2/2 pyelo given UA findings of pyruria and bactiuria with resultant bacteremia 2/2 ESBL EColi #1. Pyelonephritis - given ESBL microbe with no readily apparent PO options, follow-up infectious disease recommendations. Per discussion with them will repeat blood cultures as well, then depending on the results may or may not order for PICC line placement -Continue current IV antibiotics for now. 2. pain management-stable, continue current meds 3. GI - regular diet 4. ppx- DVT-low molecular weight heparin Problems: Subjective 24 Hr Interval Summary Free Text/Dictation Patient had no acute events overnight. Exam/Review of Systems Vital Signs Vitals Vital Signs Date Time Temp Pulse Resp B/P Pulse Ox O2 Delivery O2 Flow Rate FiO2 11/17/16 07:45 98.6 93 18 140/67 93 11/15/16 00:03 Room Air Intake and Output 11/16/16 11/16/16 11/17/16 15:00 23:00 07:00 Intake Total 1500 ml 600 ml Balance 1500 ml 600 ml Exam Sitting in chair, no acute distress Pupils equal round reactive to light extraocular muscles are intact lungs clear S1-S2 heard abd soft no rashes Results Result Diagram: 11/17/16 0433 11/17/16 0433 Results 24 hrs Laboratory Tests Test 11/17/16 04:33 White Blood Count 15.7 #H Red Blood Count 3.65 L Hemoglobin 11.0 L Hematocrit 33.4 L Mean Corpuscular Volume 91.5 Mean Corpuscular Hemoglobin 30.1 Mean Corpuscular Hemoglobin Concent 32.9 Red Cell Distribution Width 13.1 Platelet Count 548 #H Mean Platelet Volume 9.8 Neutrophils % 74.9 Lymphocytes % 16.1 Monocytes % 4.9 Eosinophils % 1.4 Basophils % 0.3 Nucleated Red Blood Cells % 0.0 Neutrophils # 11.8 H Lymphocytes # 2.5 Monocytes # 0.8 Eosinophils # 0.2 Basophils # 0.0 Nucleated Red Blood Cells # 0.0 Sodium Level 142 Potassium Level 4.9 Chloride Level 104 Carbon Dioxide Level 25 Anion Gap 18 H Blood Urea Nitrogen 12 Creatinine 0.86 Glucose Level 101 Calcium Level 9.0 Medications Medications Current Medications Ondansetron HCl (Zofran Tab) 4 mg Q6H PRN PO NAUSEA AND/OR VOMITING; Start at 18:30 Ondansetron HCl (Zofran Inj) 4 mg Q6H PRN IV NAUSEA AND/OR VOMITING; Start at 18:30 Metoclopramide HCl (Reglan) 10 mg Q6H PRN IV NAUSEA AND/OR VOMITING; Start at 18:30 Acetaminophen (Tylenol Tab) 650 mg Q6H PRN PO PAIN LEVEL 1-3 OR FEVER Last administered on 11/16/16 01:02; Admin Dose 650 MG; Start 11/13/16 at 18:30 Acetaminophen/ Hydrocodone Bitart ([place] (5/325)) 1 tab Q6H PRN PO MODERATE PAIN LEVEL 4-6; Start 11/13/16 at 18:30 Docusate Sodium (Colace) 100 mg Q12H PRN PO CONSTIPATION; Start 11/13/16 at 18: 30 Magnesium Hydroxide (Milk Of Mag) 30 ml DAILY PRN PO CONSTIPATION; Start at 18:30 Bisacodyl (Dulcolax) 5 mg DAILY PRN PO CONSTIPATION; Start 11/13/16 at 18:30 Enoxaparin Sodium (Lovenox) 40 mg DAILY SC Last administered on 11/15/16 07:58 ; Admin Dose 40 MG; Start 11/14/16 at 09:00 Hydromorphone HCl 0.5 mg 0.5 mg Q3H PRN IV PAIN; Start 11/14/16 at 09:30 Ertapenem/Sodium Chloride (Invanz/NS) 100 ml @ 200 mls/hr Q24H IVPB Last administered on 11/16/16 16:43; Admin Dose 200 MLS/HR; Start 11/15/16 at 18:30 TAYO SMITH Nov 17, 2016 12:04
[2016-11-17] MEDS ORDERED: LIDOCAINE 1% (MPF) 5 ML VIAL SC ONE (16:30)
--- NOTE | 2016-11-17 17:15 | RADRPT ---
PROCEDURE: XR Chest. CLINICAL INDICATION: Check PICC line position. TECHNIQUE: Single frontal view. COMPARISON: 03/06/2015. FINDINGS: There is a left arm PICC line with the tip in the lower superior vena cava. The lungs are clear. The heart size is normal. There is no pleural effusion. There is no pneumothorax. IMPRESSION: 1. Left arm PICC line tip in satisfactory position. 2. Otherwise normal chest radiograph. RPTAT: QQ .Valeriy Marquez MD, MD Date Time Electronically viewed and signed by .Valeriy Marquez MD, MD on 11/17/2016 17:15 .R/
--- NOTE | 2016-11-17 17:15 | RADRPT ---
PROCEDURE: Ultrasound guidance for placement of needle in left upper extremity vein. CLINICAL INDICATION: Venous access. TECHNIQUE: Limited sonography of the left upper extremity was performed. Ultrasound images were recorded and s tored in the patient's medical record. COMPARISON: None. FINDINGS: The ultrasound images demonstrate a patent left upper extremity vein. The PICC line was inserted by the PICC line nurse. IMPRESSION: 1. Ultrasound guidance for a needle placement in a left upper extremity vein. 2. The left upper extremity vein is patent. RPTAT: QQ .Valeriy Marquez MD, MD Date Time Electronically viewed and signed by .Valeriy Marquez MD, MD on 11/17/2016 17:15 .R/
--- NOTE | 2016-11-17 17:47 | CONS ---
Date/Time of Note Date/Time of Note DATE: 11/17/16 TIME: 17:45 Assessment/Plan Assessment/Plan Chief Complaint/Hosp Course Alert, feels better, denies dysuria, no nausea vomiting no diarrhea, less lower back pain Antimicrobials: Invanz Microbiology: Blood and urine culture growing E. coli ESBL, repeat bld c negative Physical examination: Obese well-developed middle-aged woman who is alert in no distress. Head atraumatic normocephalic, sclera nonicteric vehicle mucosa pink. Neck is supple. Chest rise symmetrical, breath sounds clear. Abdomen soft, no pain on palpation bowel tones present extremities no cyanosis Assessment: 1. Sepsis with E. coli ESBL bacteremia secondary to #2 2. E. coli ESBL pyelonephritis Plan: Stable, repeat blood cultures negative, WBC decreasing, consider PICC line placement and and anticipate discharge home on Invanz 1 g daily until November 29 Discussed with patient Discussed with Dr. Lott Problems: Consultation Date/Type/Reason Admit Date/Time Nov 13, 2016 at 17:41 Type of Consultation: ID Exam/Review of Systems Vital Signs Vitals Vital Signs Date Time Temp Pulse Resp B/P Pulse Ox O2 Delivery O2 Flow Rate FiO2 11/17/16 07:45 98.6 93 18 140/67 93 11/15/16 00:03 Room Air Intake and Output 11/16/16 11/16/16 11/17/16 15:00 23:00 07:00 Intake Total 1500 ml 600 ml Balance 1500 ml 600 ml Results Result Diagram: 11/17/16 0433 11/17/16 0433 Results 24 hrs Laboratory Tests Test 11/17/16 04:33 White Blood Count 15.7 #H Red Blood Count 3.65 L Hemoglobin 11.0 L Hematocrit 33.4 L Mean Corpuscular Volume 91.5 Mean Corpuscular Hemoglobin 30.1 Mean Corpuscular Hemoglobin Concent 32.9 Red Cell Distribution Width 13.1 Platelet Count 548 #H Mean Platelet Volume 9.8 Neutrophils % 74.9 Lymphocytes % 16.1 Monocytes % 4.9 Eosinophils % 1.4 Basophils % 0.3 Nucleated Red Blood Cells % 0.0 Neutrophils # 11.8 H Lymphocytes # 2.5 Monocytes # 0.8 Eosinophils # 0.2 Basophils # 0.0 Nucleated Red Blood Cells # 0.0 Sodium Level 142 Potassium Level 4.9 Chloride Level 104 Carbon Dioxide Level 25 Anion Gap 18 H Blood Urea Nitrogen 12 Creatinine 0.86 Glucose Level 101 Calcium Level 9.0 Medications Medications Current Medications Ondansetron HCl (Zofran Tab) 4 mg Q6H PRN PO NAUSEA AND/OR VOMITING; Start at 18:30 Ondansetron HCl (Zofran Inj) 4 mg Q6H PRN IV NAUSEA AND/OR VOMITING; Start at 18:30 Metoclopramide HCl (Reglan) 10 mg Q6H PRN IV NAUSEA AND/OR VOMITING; Start at 18:30 Acetaminophen (Tylenol Tab) 650 mg Q6H PRN PO PAIN LEVEL 1-3 OR FEVER Last administered on 11/16/16 01:02; Admin Dose 650 MG; Start 11/13/16 at 18:30 Acetaminophen/ Hydrocodone Bitart ([place] (5/325)) 1 tab Q6H PRN PO MODERATE PAIN LEVEL 4-6; Start 11/13/16 at 18:30 Docusate Sodium (Colace) 100 mg Q12H PRN PO CONSTIPATION; Start 11/13/16 at 18: 30 Magnesium Hydroxide (Milk Of Mag) 30 ml DAILY PRN PO CONSTIPATION; Start at 18:30 Bisacodyl (Dulcolax) 5 mg DAILY PRN PO CONSTIPATION; Start 11/13/16 at 18:30 Enoxaparin Sodium (Lovenox) 40 mg DAILY SC Last administered on 11/15/16 07:58 ; Admin Dose 40 MG; Start 11/14/16 at 09:00 Hydromorphone HCl 0.5 mg 0.5 mg Q3H PRN IV PAIN; Start 11/14/16 at 09:30 Ertapenem/Sodium Chloride (Invanz/NS) 100 ml @ 200 mls/hr Q24H IVPB Last administered on 11/16/16 16:43; Admin Dose 200 MLS/HR; Start 11/15/16 at 18:30 JANIA CHAUHAN NP Nov 17, 2016 17:47
[2016-11-17] MEDS: ERTAPENEM SODIUM 1 GM in SOD CHLORIDE 0.9% 100 ML IVPB SCH (18:14)
[2016-11-17 19:17] VITALS: BP 126/81; RESP 18
[2016-11-18 05:47] LABS: ADD SCAN DIFF NO
[2016-11-18 05:53] LABS: BASOPHILS % 0.3 % (0.0-2.0); EOSINOPHILS # 0.1 10^3/ul (0.0-0.5); EOSINOPHILS % 1.1 % (0.0-7.0); HEMATOCRIT 38.1 % (37.0-47.0); HEMOGLOBIN 12.3 g/dl (12.0-16.0); LYMPHOCYTES # 2.2 10^3/ul (0.8-2.9); LYMPHOCYTES % 17.2 % (15.0-51.0); MEAN CORPUSCULAR HEMOGLOBIN 29.1 pg (29.0-33.0); MEAN CORPUSCULAR HGB CONC 32.3 g/dl (32.0-37.0); MEAN CORPUSCULAR VOLUME 90.1 fl (82.0-101.0); MEAN PLATELET VOLUME 11.1 fl (7.4-10.4); MONOCYTE # 0.6 10^3/ul (0.3-0.9); MONOCYTES % 5.1 % (0.0-11.0); NEUTROPHIL # 9.4 10^3/ul (1.6-7.5); NEUTROPHILS % 74.5 % (39.0-77.0); PLATELET COUNT 426 10^3/UL (140-415); RED BLOOD COUNT 4.23 10^6/ul (4.20-5.40); RED CELL DISTRIBUTION WIDTH 12.8 % (11.5-14.5); WHITE BLOOD COUNT 12.6 10^3/ul (4.8-10.8)
[2016-11-18 06:23] LABS: CALCIUM 9.3 mg/dl (8.4-10.2); CREATININE 0.77 mg/dl (0.44-1.00); POTASSIUM 4.6 mmol/L (3.5-5.1)
[2016-11-18 08:15] VITALS: BP 123/87; RESP 20
[2016-11-18] MEDS: ENOXAPARIN 40 MG/0.4 ML SYG SC SCH (08:16)
--- NOTE | 2016-11-18 11:41 | PN ---
Date/Time of Note Date/Time of Note DATE: 11/18/16 TIME: 11:39 Assessment/Plan VTE Prophylaxis VTE Prophylaxis Intervention: LMWH Lines/Catheters IV Catheter Type (from Nrsg): PICC Line Central line still needed: Yes Urinary Cath still in place: No Assessment/Plan Chief Complaint/Hosp Course Assessment/Plan: 41 yo F here with sepsis (fever +leukocytosis) suspect 2/2 pyelo given UA findings of pyruria and bactiuria with resultant bacteremia 2/2 ESBL EColi #1. Pyelonephritis - given ESBL microbe with no readily apparent PO options, -follow-up infectious disease recommendations. -Continue current IV antibiotics for now, will need Invanz 1 g IV daily until November 29. 2. pain management-stable, continue current meds 3. GI - regular diet 4. ppx- DVT-low molecular weight heparin Problems: Subjective 24 Hr Interval Summary Free Text/Dictation Patient had PICC line placed yesterday. No acute events overnight Exam/Review of Systems Vital Signs Vitals Vital Signs Date Time Temp Pulse Resp B/P Pulse Ox O2 Delivery O2 Flow Rate FiO2 11/18/16 08:15 98.6 97 20 123/87 98 11/15/16 00:03 Room Air Intake and Output 11/17/16 11/17/16 11/18/16 15:00 23:00 07:00 Intake Total 2460 ml 750 ml Balance 2460 ml 750 ml Exam Sitting in chair, no acute distress Pupils equal round reactive to light extraocular muscles are intact lungs clear S1-S2 heard abd soft no rashes Results Result Diagram: 11/18/16 0506 11/18/16 0508 Results 24 hrs Laboratory Tests Test 11/18/16 05:06 11/18/16 05:08 White Blood Count 12.6 H Red Blood Count 4.23 Hemoglobin 12.3 Hematocrit 38.1 Mean Corpuscular Volume 90.1 Mean Corpuscular Hemoglobin 29.1 Mean Corpuscular Hemoglobin Concent 32.3 Red Cell Distribution Width 12.8 Platelet Count 426 #H Mean Platelet Volume 11.1 H Neutrophils % 74.5 Lymphocytes % 17.2 Monocytes % 5.1 Eosinophils % 1.1 Basophils % 0.3 Nucleated Red Blood Cells % 0.0 Neutrophils # 9.4 H Lymphocytes # 2.2 Monocytes # 0.6 Eosinophils # 0.1 Basophils # 0.0 Nucleated Red Blood Cells # 0.0 Sodium Level 140 Potassium Level 4.6 Chloride Level 100 Carbon Dioxide Level 24 Anion Gap 21 H Blood Urea Nitrogen 14 Creatinine 0.77 Glucose Level 112 Calcium Level 9.3 Medications Medications Current Medications Ondansetron HCl (Zofran Tab) 4 mg Q6H PRN PO NAUSEA AND/OR VOMITING; Start at 18:30 Ondansetron HCl (Zofran Inj) 4 mg Q6H PRN IV NAUSEA AND/OR VOMITING; Start at 18:30 Metoclopramide HCl (Reglan) 10 mg Q6H PRN IV NAUSEA AND/OR VOMITING; Start at 18:30 Acetaminophen (Tylenol Tab) 650 mg Q6H PRN PO PAIN LEVEL 1-3 OR FEVER Last administered on 11/16/16 01:02; Admin Dose 650 MG; Start 11/13/16 at 18:30 Acetaminophen/ Hydrocodone Bitart ([place] (5/325)) 1 tab Q6H PRN PO MODERATE PAIN LEVEL 4-6; Start 11/13/16 at 18:30 Docusate Sodium (Colace) 100 mg Q12H PRN PO CONSTIPATION; Start 11/13/16 at 18: 30 Magnesium Hydroxide (Milk Of Mag) 30 ml DAILY PRN PO CONSTIPATION; Start at 18:30 Bisacodyl (Dulcolax) 5 mg DAILY PRN PO CONSTIPATION; Start 11/13/16 at 18:30 Enoxaparin Sodium (Lovenox) 40 mg DAILY SC Last administered on 11/18/16 08:16 ; Admin Dose 40 MG; Start 11/14/16 at 09:00 Hydromorphone HCl 0.5 mg 0.5 mg Q3H PRN IV PAIN; Start 11/14/16 at 09:30 Ertapenem/Sodium Chloride (Invanz/NS) 100 ml @ 200 mls/hr Q24H IVPB Last administered on 11/17/16 18:14; Admin Dose 200 MLS/HR; Start 11/15/16 at 18:30 IV Flush (NS 10 ml) 10 ml PRN PRN IV IV PROTOCOL; Start 11/17/16 at 18:00 TAYO SMITH Nov 18, 2016 11:40
--- NOTE | 2016-11-18 12:45 | CONS ---
Date/Time of Note Date/Time of Note DATE: 11/18/16 TIME: 12:44 Assessment/Plan Assessment/Plan Chief Complaint/Hosp Course No acute changes patient is alert feels good denies any discomfort no fevers status post PICC line placed Antimicrobials: Invanz Microbiology: Blood and urine culture growing E. coli ESBL, repeat bld c negative Physical examination: Obese well-developed middle-aged woman who is alert in no distress. Head atraumatic normocephalic, sclera nonicteric vehicle mucosa pink. Neck is supple. Chest rise symmetrical, breath sounds clear. Abdomen soft, no pain on palpation bowel tones present extremities no cyanosis Assessment: 1. Resolving sepsis with E. coli ESBL bacteremia secondary to #2 2. E. coli ESBL pyelonephritis Plan: Continues to improve repeat blood cultures negative, anticipate discharge home on Invanz 1 g daily until November 29 Discussed with patient Problems: Consultation Date/Type/Reason Admit Date/Time Nov 13, 2016 at 17:41 Type of Consultation: ID Exam/Review of Systems Vital Signs Vitals Vital Signs Date Time Temp Pulse Resp B/P Pulse Ox O2 Delivery O2 Flow Rate FiO2 11/18/16 08:15 98.6 97 20 123/87 98 11/15/16 00:03 Room Air Intake and Output 11/17/16 11/17/16 11/18/16 15:00 23:00 07:00 Intake Total 2460 ml 750 ml Balance 2460 ml 750 ml Results Result Diagram: 11/18/16 0506 11/18/16 0508 Results 24 hrs Laboratory Tests Test 11/18/16 05:06 11/18/16 05:08 White Blood Count 12.6 H Red Blood Count 4.23 Hemoglobin 12.3 Hematocrit 38.1 Mean Corpuscular Volume 90.1 Mean Corpuscular Hemoglobin 29.1 Mean Corpuscular Hemoglobin Concent 32.3 Red Cell Distribution Width 12.8 Platelet Count 426 #H Mean Platelet Volume 11.1 H Neutrophils % 74.5 Lymphocytes % 17.2 Monocytes % 5.1 Eosinophils % 1.1 Basophils % 0.3 Nucleated Red Blood Cells % 0.0 Neutrophils # 9.4 H Lymphocytes # 2.2 Monocytes # 0.6 Eosinophils # 0.1 Basophils # 0.0 Nucleated Red Blood Cells # 0.0 Sodium Level 140 Potassium Level 4.6 Chloride Level 100 Carbon Dioxide Level 24 Anion Gap 21 H Blood Urea Nitrogen 14 Creatinine 0.77 Glucose Level 112 Calcium Level 9.3 Medications Medications Current Medications Ondansetron HCl (Zofran Tab) 4 mg Q6H PRN PO NAUSEA AND/OR VOMITING; Start at 18:30 Ondansetron HCl (Zofran Inj) 4 mg Q6H PRN IV NAUSEA AND/OR VOMITING; Start at 18:30 Metoclopramide HCl (Reglan) 10 mg Q6H PRN IV NAUSEA AND/OR VOMITING; Start at 18:30 Acetaminophen (Tylenol Tab) 650 mg Q6H PRN PO PAIN LEVEL 1-3 OR FEVER Last administered on 11/16/16 01:02; Admin Dose 650 MG; Start 11/13/16 at 18:30 Acetaminophen/ Hydrocodone Bitart ([place] (5/325)) 1 tab Q6H PRN PO MODERATE PAIN LEVEL 4-6; Start 11/13/16 at 18:30 Docusate Sodium (Colace) 100 mg Q12H PRN PO CONSTIPATION; Start 11/13/16 at 18: 30 Magnesium Hydroxide (Milk Of Mag) 30 ml DAILY PRN PO CONSTIPATION; Start at 18:30 Bisacodyl (Dulcolax) 5 mg DAILY PRN PO CONSTIPATION; Start 11/13/16 at 18:30 Enoxaparin Sodium (Lovenox) 40 mg DAILY SC Last administered on 11/18/16 08:16 ; Admin Dose 40 MG; Start 11/14/16 at 09:00 Hydromorphone HCl 0.5 mg 0.5 mg Q3H PRN IV PAIN; Start 11/14/16 at 09:30 Ertapenem/Sodium Chloride (Invanz/NS) 100 ml @ 200 mls/hr Q24H IVPB Last administered on 11/17/16 18:14; Admin Dose 200 MLS/HR; Start 11/15/16 at 18:30 IV Flush (NS 10 ml) 10 ml PRN PRN IV IV PROTOCOL; Start 11/17/16 at 18:00 JANIA CHAUHAN NP Nov 18, 2016 12:45
[2016-11-18] MEDS: ERTAPENEM SODIUM 1 GM in SOD CHLORIDE 0.9% 100 ML IVPB SCH (17:55)
[2016-11-18 19:56] VITALS: BP 121/72; RESP 18
[2016-11-19 05:25] LABS: ADD SCAN DIFF NO
[2016-11-19 05:30] LABS: BASOPHILS % 0.3 % (0.0-2.0); EOSINOPHILS # 0.1 10^3/ul (0.0-0.5); EOSINOPHILS % 1.1 % (0.0-7.0); HEMATOCRIT 35.5 % (37.0-47.0); HEMOGLOBIN 11.7 g/dl (12.0-16.0); LYMPHOCYTES # 2.2 10^3/ul (0.8-2.9); LYMPHOCYTES % 17.9 % (15.0-51.0); MEAN CORPUSCULAR HEMOGLOBIN 29.8 pg (29.0-33.0); MEAN CORPUSCULAR VOLUME 90.6 fl (82.0-101.0); MEAN PLATELET VOLUME 9.6 fl (7.4-10.4); MONOCYTE # 0.6 10^3/ul (0.3-0.9); MONOCYTES % 4.9 % (0.0-11.0); NEUTROPHIL # 8.9 10^3/ul (1.6-7.5); NEUTROPHILS % 73.9 % (39.0-77.0); PLATELET COUNT 468 10^3/UL (140-415); RED BLOOD COUNT 3.92 10^6/ul (4.20-5.40); RED CELL DISTRIBUTION WIDTH 12.4 % (11.5-14.5)
[2016-11-19 05:58] LABS: CALCIUM 9.2 mg/dl (8.4-10.2); CREATININE 0.74 mg/dl (0.44-1.00); POTASSIUM 4.2 mmol/L (3.5-5.1)
[2016-11-19 08:02] VITALS: BP 120/80; RESP 20
[2016-11-19] MEDS: ENOXAPARIN 40 MG/0.4 ML SYG SC SCH (09:00)
--- NOTE | 2016-11-19 11:04 | PDOCDIS ---
Discharge Instructions CONDITION Patient Condition: Stable HOME CARE INSTRUCTIONS: Diet Instructions: RegularSpecial Diet: REGULAR ACTIVITY: Activity Restrictions: Slowly Increase Activity Rest between Activity Avoid heavy lifting Bathing Restrictions: Shower FOLLOW UP/APPOINTMENTS Follow-up Plan Please take your medications, particularly your antibiotics, as prescribed. Please follow-up with her primary doctor in the clinic in the next 1 week. TAYO SMITH Nov 19, 2016 11:04
[2016-11-19] MEDS ORDERED: DOCU-216 PO (11:06)
[2016-11-19] MEDS ORDERED: UDMOM PO (11:06)
--- NOTE | 2016-11-19 11:13 | DS ---
Date/Time of Note Date/Time of Note DATE: 11/19/16 TIME: 11:07 Discharge Summary Admission/Discharge Info Admit Date/Time Nov 13, 2016 at 17:41 Discharge Date/Time Discharge Diagnosis 1. Pyelonephritis 2. ESBL E. coli urinary tract infection 3. ESBL E. coli bacteremia 4. History of 2 Patient Condition: Stable Hospital Course 41 yo F presented to the hospital after experiencing 1 day of feeling unwell--> nausea, chills. No fever. No vomiting. +malaise. No back pain. She was admitted to medical surgical floor, seen by infectious disease team during this hospital stay. She was diagnosed with pyelonephritis. Both her urine cultures and blood cultures were positive for ESBL L E. coli infection. She was placed on IV antibiotics. Over the course of her hospital stay her nausea symptoms and overall malaise symptoms improved. Her labs were checked as well and her white blood cell count trended down to close to normal levels by day of discharge, she had no fevers during the last 24 hours of her hospital stay. She will need a total of 14 days treatment of IV antibiotics to complete the treatment for pyelonephritis and for bacteremia, Invanz 1 g IV daily until November 29. Please see below as well for full discharge medication list. After she has completed treatment home PICC line will be removed. Home Meds Active Scripts Magnesium Hydroxide* ([facility] MOM*) 30 Ml Susp, 30 ML PO DAILY Y for CONSTIPATION, #1 Prov:TAYO SMITH 11/19/16 Docusate Sodium (Dok) 100 Mg Capsule, 100 MG PO Q12H Y for CONSTIPATION, #60 CAP Prov:TAYO SMITH S. 11/19/16 Discontinued Reported Medications Ibuprofen (Advil) 200 Mg Tablet, 400 MG PO Q6 02/23/11 Primary Care Provider Care Physician No Primary Time spent on discharge: > 30 minutes Pending Labs Laboratory Tests Test 11/19/16 04:46 White Blood Count 12.010^3/ul (4.8-10.8) Red Blood Count 3.9210^6/ul (4.20-5.40) Hemoglobin 11.7g/dl (12.0-16.0) Hematocrit 35.5% (37.0-47.0) Mean Corpuscular Volume 90.6fl (82.0-101.0) Mean Corpuscular Hemoglobin 29.8pg (29.0-33.0) Mean Corpuscular Hemoglobin Concent 33.0g/dl (32.0-37.0) Red Cell Distribution Width 12.4% (11.5-14.5) Platelet Count 87485^3/UL (140-415) Mean Platelet Volume 9.6fl (7.4-10.4) Neutrophils % 73.9% (39.0-77.0) Lymphocytes % 17.9% (15.0-51.0) Monocytes % 4.9% (0.0-11.0) Eosinophils % 1.1% (0.0-7.0) Basophils % 0.3% (0.0-2.0) Nucleated Red Blood Cells % 0.0/100WBC (0.0-0.0) Neutrophils # 8.910^3/ul (1.6-7.5) Lymphocytes # 2.210^3/ul (0.8-2.9) Monocytes # 0.610^3/ul (0.3-0.9) Eosinophils # 0.110^3/ul (0.0-0.5) Basophils # 0.010^3/ul (0.0-0.1) Nucleated Red Blood Cells # 0.010^3/ul (0.0-0.0) Sodium Level 139mmol/L (135-144) Potassium Level 4.2mmol/L (3.5-5.1) Chloride Level 98mmol/L (97-110) Carbon Dioxide Level 27mmol/L (21-31) Anion Gap 18 (8-16) Blood Urea Nitrogen 15mg/dl (7-20) Creatinine 0.74mg/dl (0.44-1.00) Glucose Level 111mg/dl (70-220) Calcium Level 9.2mg/dl (8.4-10.2) TAYO SMITH Nov 19, 2016 11:12
--- NOTE | 2016-11-19 14:26 | CONS ---
Date/Time of Note Date/Time of Note DATE: 11/19/16 TIME: 14:25 Assessment/Plan Assessment/Plan Chief Complaint/Hosp Course No acute changes patient is alert feels good denies any discomfort no fevers status post PICC line placed Antimicrobials: Invanz Microbiology: Blood and urine culture growing E. coli ESBL, repeat bld c negative Physical examination: Obese well-developed middle-aged woman who is alert in no distress. Head atraumatic normocephalic, sclera nonicteric vehicle mucosa pink. Neck is supple. Chest rise symmetrical, breath sounds clear. Abdomen soft, no pain on palpation bowel tones present extremities no cyanosis Assessment: 1. Resolving sepsis with E. coli ESBL bacteremia secondary to #2 2. E. coli ESBL pyelonephritis Plan: Continues to improve repeat blood cultures negative, anticipate discharge home on Invanz 1 g daily until November 29, discharge planning today Discussed with patient Problems: Consultation Date/Type/Reason Admit Date/Time Nov 13, 2016 at 17:41 Type of Consultation: ID Exam/Review of Systems Vital Signs Vitals Vital Signs Date Time Temp Pulse Resp B/P Pulse Ox O2 Delivery O2 Flow Rate FiO2 11/19/16 08:02 98.9 91 20 120/80 98 Intake and Output 11/18/16 11/18/16 11/19/16 15:00 23:00 07:00 Intake Total 1180 ml 240 ml Balance 1180 ml 240 ml Results Result Diagram: 11/19/16 0446 11/19/16 0446 Results 24 hrs Laboratory Tests Test 11/19/16 04:46 White Blood Count 12.0 H Red Blood Count 3.92 L Hemoglobin 11.7 L Hematocrit 35.5 L Mean Corpuscular Volume 90.6 Mean Corpuscular Hemoglobin 29.8 Mean Corpuscular Hemoglobin Concent 33.0 Red Cell Distribution Width 12.4 Platelet Count 468 H Mean Platelet Volume 9.6 Neutrophils % 73.9 Lymphocytes % 17.9 Monocytes % 4.9 Eosinophils % 1.1 Basophils % 0.3 Nucleated Red Blood Cells % 0.0 Neutrophils # 8.9 H Lymphocytes # 2.2 Monocytes # 0.6 Eosinophils # 0.1 Basophils # 0.0 Nucleated Red Blood Cells # 0.0 Sodium Level 139 Potassium Level 4.2 Chloride Level 98 Carbon Dioxide Level 27 Anion Gap 18 H Blood Urea Nitrogen 15 Creatinine 0.74 Glucose Level 111 Calcium Level 9.2 Medications Medications Current Medications Ondansetron HCl (Zofran Tab) 4 mg Q6H PRN PO NAUSEA AND/OR VOMITING; Start at 18:30 Ondansetron HCl (Zofran Inj) 4 mg Q6H PRN IV NAUSEA AND/OR VOMITING; Start at 18:30 Metoclopramide HCl (Reglan) 10 mg Q6H PRN IV NAUSEA AND/OR VOMITING; Start at 18:30 Acetaminophen (Tylenol Tab) 650 mg Q6H PRN PO PAIN LEVEL 1-3 OR FEVER Last administered on 11/16/16 01:02; Admin Dose 650 MG; Start 11/13/16 at 18:30 Acetaminophen/ Hydrocodone Bitart (Red Level (5/325)) 1 tab Q6H PRN PO MODERATE PAIN LEVEL 4-6; Start 11/13/16 at 18:30 Docusate Sodium (Colace) 100 mg Q12H PRN PO CONSTIPATION; Start 11/13/16 at 18: 30 Magnesium Hydroxide (Milk Of Mag) 30 ml DAILY PRN PO CONSTIPATION; Start at 18:30 Bisacodyl (Dulcolax) 5 mg DAILY PRN PO CONSTIPATION; Start 11/13/16 at 18:30 Enoxaparin Sodium (Lovenox) 40 mg DAILY SC Last administered on 11/18/16 08:16 ; Admin Dose 40 MG; Start 11/14/16 at 09:00 Hydromorphone HCl 0.5 mg 0.5 mg Q3H PRN IV PAIN; Start 11/14/16 at 09:30 Ertapenem/Sodium Chloride (Invanz/NS) 100 ml @ 200 mls/hr Q24H IVPB Last administered on 11/18/16 17:55; Admin Dose 200 MLS/HR; Start 11/15/16 at 18:30 IV Flush (NS 10 ml) 10 ml PRN PRN IV IV PROTOCOL; Start 11/17/16 at 18:00 JANIA CHAUHAN NP Nov 19, 2016 14:26
[2016-11-19] MEDS: ERTAPENEM SODIUM 1 GM in SOD CHLORIDE 0.9% 100 ML IVPB SCH (15:54)
== END 2016-11-19 17:57 | disposition home health service (06) | DRG 872 ==
LOC: FTE 11:22 → MS1 17:41
PROVIDERS: ADMIT Internal Medicine; ATTEND Internal Medicine
PROC: 02HV33Z Insertion of Infusion Device into Superior Vena Cava, Percutaneous Approach (ICD-10-PCS; principal; 2016-11-17)
DX: A41.51 Sepsis due to Escherichia coli [E. coli] (principal); E87.1 Hypo-osmolality and hyponatremia; N12 Tubulo-interstitial nephritis, not specified as acute or chronic; B96.20 Unspecified Escherichia coli [E. coli] as the cause of diseases classified elsewhere; Z90.49 Acquired absence of other specified parts of digestive tract
CPT/HCPCS: 36569; 71010; 74176; 76937; 80048; 80053; 81001; 82150; 83605; 83690; 84703; 85025; 85610; 85730; 87040; 87086; 96361; 96374; 96375; C1769; J0696; J1170; J1335; J1650; J1885; J2185; J2405; J3480; J7030; J7040

== ENCOUNTER 2016-11-26 11:25 | Outpatient (CLI) | payer MEDICAID ==
[~2016-11-26] VITALS: Ht 162.6 cm; Wt 107.0 kg
[~2016-11-26 11:25] MED LIST changes: +DOCU-216 PO; -IBUP-40 PO; +UDMOM PO
[2016-11-26 11:53] VITALS: BP 120/74; PULSE 93; RESP 16; Ht 162.6 cm; Wt 107.0 kg
[2016-11-26] MEDS ORDERED: ERTA1VIA IV (11:59)
--- NOTE | 2016-11-26 12:26 | PN ---
Date/Time of Note Date/Time of Note DATE: 11/26/16 TIME: 12:16 Outpatient Progress Note Chief Complaint Back pain/bacteremia/obesity HPI Back pain/patient complains of lumbosacral area discomfort, at present there is no flank pain, no loss of bladder or bowel control, Bacteremia/patient has pyelonephritis, patient had bacteremia, patient was started on Rocephin, patient was recently hospitalized, no fever chill, no blood in the urine, no nausea or vomiting, Obesity/patient slightly obese, no history of any hypothyroidism, Review of Systems Const: No Fever, no chills, no Wt. loss, no Fatigue, normal appetite, no diaphoresis patient slightly obese,. Eyes: No pain, no discharge, no redness, no visual change, no foreign body. No jaundice, ENT: No pain, no bleeding, no congestion, no sore throat, no dysphagia, no discharge or rhinitis. Lymph: No adenopathy, no tender nodes, no lymphedema. Resp: No SOB, no cough, no sputum, no wheezing, no chest pain. CV: No chest pain, no palpitaions, no GU, no PND, no edema. GI: Normal appetite, no pain, no nausea, no vomiting, no diarrhea, no blood, no constipation. : No frequency, no urgency, no dysuria, no hematuria, no flank pain, no discharge, no bleeding. Musc: No bone/joint pain, no lower back pain does not complain of flank pain,, no neck pain, no knee pain, no restricted ROM. Skin: No rash, no skin lesions, no erythema, no laceration, no bruising, no pruritus. Neuro: No COHEN, no dizziness, no syncope, no seizure, no focal-weakness. Endo: No polyuria, no polydypsia, no dry-skin, no temp-intolerance. Psych: No hallucinations, no depression, no anxiety, no suicidal ideation. Ext: No edema, no pain, no ulcer, no weakness. Physical Exam Vital Signs Date Time Temp Pulse Resp B/P Pulse Ox O2 Delivery O2 Flow Rate FiO2 11/26/16 11:53 97.9 93 16 120/74 98 Room Air General Appearance: A 41 year-old female who appears well-developed, well- nourished, in no acute distress. HEENT: Head normocephalic, atraumatic. Pupils equal, round, reactive to light and accommodate. Sclerae are no jaundice. Nasal turbinates pink without erythema or nasal discharge. Mucous membranes pink and moist without lesions. Oropharynx clear without any exudate or discharge. NECK: Supple. Trachea midline, No thyromegaly, No cervical lymphadenopathy, No mass, No carotid bruits, No JVD, Carotid pulses 2+ bilaterally. PULMONARY: Clear to auscultaion bilaterally, No retractions, Chest expansion symmetric bilaterally, no rales, no ronchi, no dulness on percussion. CARDIAC: Normal SI and S2, Regular rate and rythm, no murmur, gallop, or rub. GASTROINTESTINAL: Abdomen is soft, non-tender, Non Rigid, No distention, Positive bowel sounds x4 quadrants, Liver normal. SKIN: Warm, dry, no rash, no bruise, no echmosis. EXTREMITIES: Bilateral lower extremities no edema, no phlabitus, pulse palpable , no contracture. MUSCULOSKELETAL: Spine Normal, patient slight lumbosacral discomfort, no flank pain at present, normal range of motion, No swelling, no deformity, no clubbing , or cyanosis, the patient has no edema to bilateral lower extremities, dorsalis pedis pulses palpable bilaterally. NEUROLOGIC: The patient is awake, alert, oriented, responding to yes/no questions appropriately, moving all extremities, cranial nerve intact, normal strenght, normal power, normal coordination, normal gait. Allergies Coded Allergies: morphine (Verified Allergy, Intermediate, HEART PALPITATION, 11/13/16) PMH Back pain/pyelonephritis/bacteremia/obesity section Social Hx No smoking no drinking, Family Hx Noncontributory Patient History: Endocrine and metabolic disease 34 MOTHER Assessment/Plan Impression Back pain/bacteremia/pyelonephritis/obesity Plan Patient was recently hospitalized with a pyelonephritis and bacteremia, patient was started on IV antibiotic, patient still continuing IV antibiotic, Patient complains of lower back pain, but mostly the musculoskeletal, patient does not complain of flank pain, will monitor closely, Patient encouraged to follow with the primary care physician, Patient encouraged to increase activity, lose weight, Patient was advised to follow with the primary care physicians to get a CBC CMP in few days, Medications Home Meds Active Scripts Magnesium Hydroxide* ([facility] MOM*) 30 Ml Susp, 30 ML PO DAILY Y for CONSTIPATION, #1 Prov:TAYO SMITH S. 11/19/16 Docusate Sodium (Dok) 100 Mg Capsule, 100 MG PO Q12H Y for CONSTIPATION, #60 CAP Prov:TAYO SMITH S. 11/19/16 Reported Medications Ertapenem Sodium (Invanz) 1 Gm Vial.port, 1 GM IV 11/26/16 VASYL TORRE MD Nov 26, 2016 12:26
== END 2016-11-26 17:01 | disposition home or self-care (01) ==
LOC: DCC 11:25
PROVIDERS: ATTEND Internal Medicine
DX: M54.5 Low back pain (principal); N12 Tubulo-interstitial nephritis, not specified as acute or chronic; E66.9 Obesity, unspecified
CPT/HCPCS: G0463

== ENCOUNTER 2016-12-10 11:31 | Outpatient (CLI) | payer MEDICAID ==
[~2016-12-10] VITALS: Ht 162.6 cm; Wt 93.6 kg
[~2016-12-10 11:31] MED LIST changes: +ERTA1VIA IV
[2016-12-10 11:32] VITALS: BP 141/85; PULSE 86; RESP 18; Ht 162.6 cm; Wt 93.6 kg
--- NOTE | 2016-12-10 12:11 | PN ---
Date/Time of Note Date/Time of Note DATE: 12/10/16 TIME: 12:08 Outpatient Progress Note Chief Complaint Back pain/obesity HPI Back pain/patient complains of lower back pain, mostly lower site on bony areas , no pain in the costophrenic angle, no fever chill, no frequency urgency, patient did have UTI, and pyelonephritis, but the pain is at a different places , has difficulty in walking because of the pain, no loss of bladder or bowel control, Obesity/patient slightly obese, no history of hypothyroidism, Review of Systems Const: No Fever, no chills, no Wt. loss, no Fatigue, normal appetite, no diaphoresis. Slightly obese, Eyes: No pain, no discharge, no redness, no visual change, no foreign body. ENT: No pain, no bleeding, no congestion, no sore throat, no dysphagia, no discharge or rhinitis. Lymph: No adenopathy, no tender nodes, no lymphedema. Resp: No SOB, no cough, no sputum, no wheezing, no chest pain. CV: No chest pain, no palpitaions, no GU, no PND, no edema. GI: Normal appetite, no pain, no nausea, no vomiting, no diarrhea, no blood, no constipation. : No frequency, no urgency, no dysuria, no hematuria, no flank pain, no discharge, no bleeding. Musc: Lower lumbosacral back pain, no neck pain, no knee pain, no restricted ROM. Skin: No rash, no skin lesions, no erythema, no laceration, no bruising, no pruritus. Neuro: No COHEN, no dizziness, no syncope, no seizure, no focal-weakness. Endo: No polyuria, no polydypsia, no dry-skin, no temp-intolerance. Psych: No hallucinations, no depression, no anxiety, no suicidal ideation. Ext: No edema, no pain, no ulcer, no weakness. Physical Exam Vital Signs Date Time Temp Pulse Resp B/P Pulse Ox O2 Delivery O2 Flow Rate FiO2 12/10/16 11:32 97.9 86 18 141/85 96 Room Air General Appearance: A 41 year-old female who appears well-developed, well- nourished, in no acute distress. HEENT: Head normocephalic, atraumatic. Pupils equal, round, reactive to light and accommodate. Sclerae are no jaundice. Nasal turbinates pink without erythema or nasal discharge. Mucous membranes pink and moist without lesions. Oropharynx clear without any exudate or discharge. NECK: Supple. Trachea midline, No thyromegaly, No cervical lymphadenopathy, No mass, No carotid bruits, No JVD, Carotid pulses 2+ bilaterally. PULMONARY: Clear to auscultaion bilaterally, No retractions, Chest expansion symmetric bilaterally, no rales, no ronchi, no dulness on percussion. CARDIAC: Normal SI and S2, Regular rate and rythm, no murmur, gallop, or rub. GASTROINTESTINAL: Abdomen is soft, non-tender, Non Rigid, No distention, Positive bowel sounds x4 quadrants, Liver normal. SKIN: Warm, dry, no rash, no bruise, no echmosis. EXTREMITIES: Bilateral lower extremities normal, no edema, no phlabitus, pulse palpable, no contracture. MUSCULOSKELETAL: Spine Normal, lower lumbosacral area tenderness, mostly in the bony area, normal range of motion, No swelling, no deformity, no clubbing, or cyanosis, the patient has no edema to bilateral lower extremities, dorsalis pedis pulses palpable bilaterally. NEUROLOGIC: The patient is awake, alert, oriented, responding to yes/no questions appropriately, moving all extremities, cranial nerve intact, normal strenght, normal power, normal coordination, normal gait. Allergies Coded Allergies: morphine (Verified Allergy, Intermediate, HEART PALPITATION, 11/13/16) PMH No change Social Hx No change Family Hx No change Patient History: Endocrine and metabolic disease 34 MOTHER Assessment/Plan Impression Back pain/obesity History of pyelonephritis resolved Plan Patient education done, patient advised to lose weight, increase activity, control the diet, patient blood pressure also slightly elevated, patient advised to lose weight, that will control the blood pressure, Patient encouraged to follow with the primary care physician, Patient has lumbosacral area discomfort, will start Naprosyn 375 twice daily, # 60 We will also give Protonix or equivalent 40 mg p.o. daily #30, Medications Home Meds Active Scripts Magnesium Hydroxide* ([facility] MOM*) 30 Ml Susp, 30 ML PO DAILY Y for CONSTIPATION, #1 Prov:TAYO SMITH 11/19/16 Docusate Sodium (Dok) 100 Mg Capsule, 100 MG PO Q12H Y for CONSTIPATION, #60 CAP Prov:TAYO SMITH 11/19/16 Discontinued Reported Medications Ertapenem Sodium (Invanz) 1 Gm Vial.port, 1 GM IV 11/26/16 VASYL TORRE MD Dec 10, 2016 12:11
== END 2016-12-10 17:00 | disposition home or self-care (01) ==
LOC: DCC 11:31
PROVIDERS: ATTEND Internal Medicine
DX: M54.9 Dorsalgia, unspecified (principal); E66.9 Obesity, unspecified; N12 Tubulo-interstitial nephritis, not specified as acute or chronic
CPT/HCPCS: G0463

== ENCOUNTER 2017-05-18 09:20 | Emergency (ER) | END 2017-05-18 11:15 | disposition home or self-care (01) ==

== ENCOUNTER 2017-08-11 11:47 | Emergency (ER) | END 2017-08-11 16:29 | disposition home or self-care (01) ==

== ENCOUNTER 2017-08-15 20:38 | Emergency (ER) | END 2017-08-16 05:10 | disposition short-term general hospital (02) ==